=== PATIENT | female | born 1965 | race Caucasian/White ===

== ENCOUNTER → 2017-12-25 | Outpatient (CLI) | payer OTHER ==
[~2017-12-25] VITALS: Ht 149.9 cm; Wt 41.8 kg
[~2017-12-25] MED LIST: ALEVE220 MG PO; ALLEGRA-D 12 H1 EAC1 PO; ALLERGY PO; APAP500 PO; CYCLOBENZAPRINE10 MG PO; CYCLOBENZAPRINE5 MG PO; EYE DROPS OPHTHALMIC; EYE DROPS15 M1 OP; FLEXERIL PO; HYDROCODON-ACE1 EAC5 PO; HYDROCODON-ACE1 EACH PO; HYDROCODONE-AP1 EAC6 PO; MEDROLDOSEPACK PO; NORFLEX100 MG PO; TYLENOL EX-STR500 M2 PO
--- NOTE | ~2017-12-25 | HPC ---
[facility] [place] [address] PAIN MANAGEMENT CONSULTATION Name: JANET ROBERTS Room #: REG CHAS Leslie.#: [id number] Admission: 12/25/17 Attend Phys: Remington Byrnes MD Discharge: Date of : 61 Report #: [id number] THIS REPORT FOR: //name// CC: [facility] physician/PCP Remington Byrnes DATE OF SERVICE: 12/25/2017 Followup visit for chronic low back pain with spondylosis. The patient returns to pain clinic today for her medication. She is currently taking 1 [place] 5/325 per day. Medication is effective when she takes it, and she takes it was prophylactically before activities and at the end of certain aggravating activities. An example was given of her son's graduation. She had to go to [place] for the graduation and was required to sit in bleachers for about 3 hours. By the end of the day, she and the medication that she took the hydrocodone and Flexeril at bedtime were very helpful. Most of her pain is across her low back. Her morphine milligram equivalency is 2.5-5 MME today. Extremely low. We have reviewed the CDC guidelines in our opioid agreement. She will safeguard her medication. PHYSICAL EXAMINATION: She is a pleasant 52-year-old. Pain score of 4. She has a blood pressure of 128/77, heart rate 90, respirations 14, BMI is 18.6. This is pretty typical for her as she is a very small and slight woman. She has some pain across her low back and pain with forward flexion and extension. Localized tenderness without radiation. IMPRESSION: 1. Chronic low back pain with spondylosis and muscle spasm. 2. Management of small amounts of [place] and Flexeril less than 10 MME by opioid calculation. 3. I renewed her medications for 3 months and see her back in the pain clinic. No injections or other treatments are indicated at this time. Importance of remaining active was discussed as a prevention for her as well. By: [id number] Remington Byrnes MD /nt
[2017-12-25 11:06] VITALS: BP 128/77
== END ==
LOC: PAIN 06:53
DX: M47.816 Spondylosis without myelopathy or radiculopathy, lumbar region (principal); G89.29 Other chronic pain; M54.5 Low back pain; M62.838 Other muscle spasm; Z79.899 Other long term (current) drug therapy

== ENCOUNTER → 2018-05-11 | Outpatient (CLI) | payer OTHER ==
[~2018-05-11] VITALS: Ht 149.9 cm; Wt 42.8 kg
[~2018-05-11] MED LIST changes: +COQ-10100 MG PO
--- NOTE | ~2018-05-11 | HPC ---
[facility] [address] [place] [address] PAIN MANAGEMENT CONSULTATION Name: JANET ROBERTS Room #: REG ALEJANDROAmerica Hutchins#: [id number] Admission: 05/11/18 Attend Phys: Remington Byrnes MD Discharge: Date of : 61 Report #: [id number] THIS REPORT FOR: //name// CC: [facility] physician/PCP Remington Byrnes DATE OF SERVICE: 05/11/2018 REASON FOR VISIT: Followup visit for low back pain, now with radicular symptoms. HISTORY OF PRESENT ILLNESS: The patient has been a longstanding patient of our clinic providing medication for chronic pain. She is at very low dose hydrocodone with daily MME of no more than 10-15. She uses it carefully. Previously, she was using a half tablet at a time 2.5 5 MME. She was grateful for the relief that she had and having very few side effects. Today, her pain score is at 5/10 and it is associated also with spasm and an aching sensation. Pain is now radiating down into her legs with stiffness. It is hard to determine dermatome but mostly down the back of her legs. She does not have recent MRI. Pain is made worse with bending, stretching forward flexion. She used to walk 40 minutes on the treadmill daily, but now finds that that is a very fatiguing exercise for her and she has no reason for it other than the fact that her legs are suddenly achy. She still gets about 53873 to 6[address]12 steps a day by her Fitbit. The patient has a history of double mastectomy. Home activities include housework, exercise, twisting, turning. She drives a car without difficulty, although the pain is becoming worse, more considerable towards the end of the day. MEDICATIONS: Include CoQ10, hydrocodone as described, cyclobenzaprine is available, but she does not use it because of sedation and she takes Tylenol occasionally, but does not exceed limits acceptable. PHYSICAL EXAMINATION: She is very tiny 4 feet 11 inches female with a BMI of 19.1. Her blood pressure is 123/75, heart rate 93, respirations 16. She has pain with forward flexion and back extension. Straight leg raising is mildly positive bilaterally at L5-S1 distribution. Sensation is intact. No focal weakness is noted. Deep tendon reflexes are 2+ at knees and ankles. IMPRESSION: Chronic low back pain with some spondylitic changes. Now developing symptoms of lumbar radiculopathy. RECOMMENDATIONS: I will renew her medication for her today, but I have agreed [facility] [address] [place] [address] PAIN MANAGEMENT CONSULTATION Name: JANET ROBERTS Room #: REG [facility].#: [id number] Admission: 05/11/18 Attend Phys: Remington Byrnes MD Discharge: Date of : 61 Report #: [id number] that we will try an epidural steroid injection. She would like to avoid increasing her opioid medication. I will inject her at L4-L5 and plan in covering at least 3-4 dermatomes. If she has not improved, we will consider an MRI at that time. Followup visit planned for an epidural injection in the future. By: [id number] Remington Byrnes MD /nt
[2018-05-11 14:48] VITALS: BP 123/75
== END ==
LOC: PAIN 07:19
DX: M47.26 Other spondylosis with radiculopathy, lumbar region (principal); G89.29 Other chronic pain; Z79.899 Other long term (current) drug therapy

== ENCOUNTER → 2018-05-14 | Outpatient (CLI) | payer OTHER ==
[~2018-05-14] VITALS: Ht 149.9 cm; Wt 43.4 kg
--- NOTE | ~2018-05-14 | HPC ---
[facility] [address] [place] [address] PAIN MANAGEMENT CONSULTATION Name: JANET ROBERTS Room #: REG ALEJANDROAmerica Hutchins#: [id number] Admission: 05/14/18 Attend Phys: Remington Byrnes MD Discharge: Date of : 61 Report #: [id number] THIS REPORT FOR: //name// CC: [facility] physician/PCP Remington Byrnes DATE OF SERVICE: 05/14/2018 Followup visit for lumbar radiculopathy and low back pain. The patient was recently seen for medication management. She currently is on an opioid agreement taking a low dose of hydrocodone 10-15 mg maximum per day. She typically will take one-half tablet at a time, although recently she has been increasing that some because of increasing pain in the back and leg. As we discussed at last visit her pain is increasing with radiation now down into her legs, right worse than left. She describes it as stiffness. Most of it runs down in the L5-S1 distribution. Pain is made worse with standing, forward bending, and flexion. She is having trouble with treadmill exercising and feeling more fatigued mostly to the legs. At times, it extends all the way to the foot. She continues to however, to be very active with multiple steps per day exceeding 10,000. She has a history of glaucoma. We discussed some of the risks associated with use of steroids. A single injection with a reduced amount of triamcinolone as we have discussed today should be safe. 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 All other medications were reviewed and reconciled. PHYSICAL EXAMINATION: GENERAL: Pleasant female, quite anxious because this is her first epidural injection. VITAL SIGNS: Her blood pressure is 123/79, heart rate 85, respirations 14. Her gait is normal. EXTREMITIES: She continues to experience pain in her low back with both flexion and extension and mild straight leg raising is noted bilaterally, worse on the right than the left. Sensation is intact. No focal weakness, generalized sensations of heaviness are noted. IMPRESSION: Low back pain with spondylitic changes and symptoms of lumbar radiculopathy. PROCEDURE: L4-L5 epidural injection under fluoroscopic guidance. After informed consent, the patient was taken to fluoroscopic suite, placed [address] [address] PAIN MANAGEMENT CONSULTATION Name: JANET ROBERTS Room #: REG America Hutchins#: [id number] Admission: 05/14/18 Attend Phys: Remington Byrnes MD Discharge: Date of : 61 Report #: [id number] prone, skin prepped with ChloraPrep. Skin anesthetized over L4-L5 and a 20-gauge Tuohy epidural needle was advanced on the first attempt in the epidural space with loss of resistance technique. There was no blood or CSF aspirated. 0.5 mL of Omnipaque was injected with excellent epidurogram obtained. This was then followed by 4 mL of 0.5% lidocaine mixed with 40 mg triamcinolone. She tolerated the procedure well and was observed for a short time and discharged. Her response, will determine whether she receives another epidural injection in the future. In order for the epidural injections to be helpful, she must have meaningful relief for good duration of response and we will consider another injection in the future. She will allow this procedure to her toe box for pain management rather than increasing her opioid medication. By: [id number] Remington Byrnes MD /nt
[2018-05-14 11:00] VITALS: BP 123/79
== END | disposition home or self-care (01) ==
LOC: PAIN 06:54
DX: M54.16 Radiculopathy, lumbar region (principal); Z86.69 Personal history of other diseases of the nervous system and sense organs; Z88.2 Allergy status to sulfonamides; Z88.8 Allergy status to other drugs, medicaments and biological substances; Z79.899 Other long term (current) drug therapy

== ENCOUNTER → 2018-08-27 | Outpatient (CLI) | payer OTHER ==
[~2018-08-27] VITALS: Ht 149.9 cm; Wt 43.0 kg
[~2018-08-27] MED LIST changes: -APAP500 PO; +RHOPRESSA2.5 ML OPHTHALMIC; +TYLENOL EXTRA500 MG PO
[2018-08-27 13:31] VITALS: BP 129/87
--- NOTE | 2018-08-27 13:52 | NUR ---
Pain Clinic Assessment: 1. History of Osteoarthritis: Not Applicable History of Rheumatoid Arthritis: Not Applicable 2. Height: 4 ft. 11 in. 149.9 cm. Weight: 94.8 lb. oz. 43.001 kg. Patient's BMI: 19.1 3. Vital Signs: BP: 129/87 Pulse: 95 Resp: 14 Temp: 02 Sat: 97 ECG Mon: 4. Pain Intensity: 3 5. Fall Risk: Dizziness: N Needs help standing or walking: N Fallen in the last 3 months: N Fall risk comments: 6. Patient on Blood Thinner: None 7. History of Hypertension: N 8. Opioid Therapy greater than 6 weeks: Y Opiate Contract Signed: 05/13/16 9. Risk Assessment Tool Provided: LOW RISK 07/23 10. Functional Assessment Tool: 11. Recreational Drug Use: Never Drug Type: Tobacco Use: Never Smoker Tobacco Type: Amount or Packs/day: How Many Years: Alcohol Use: Yes Frequency: Quant:
--- NOTE | 2018-08-28 09:44 | HPC ---
[facility] [address] [place] [address] PAIN MANAGEMENT CONSULTATION Name: JANET ROBERTS Room #: REG CHAS Hutchins#: [id number] Admission: 08/27/18 Attend Phys: Madelyn Zambrano Discharge: Date of : 61 Report #: [id number] THIS REPORT FOR: //name// CC: Madelyn Zambrano [facility] physician/PCP DATE OF SERVICE: 08/27/2018 CHIEF COMPLAINT: Lumbar radiculopathy and low back pain. HISTORY OF PRESENT ILLNESS: The patient returns to the pain clinic today for a refill of her medication management that she takes for her ongoing low back pain and lumbar radiculopathy. She tells me that the injection that she had in April from Dr. Remington Byrnes helped her at least 50%. Her legs were significantly better. Unfortunately, this only lasted her for a few weeks, but during that time, she said that she felt like she was able to do more housework, has less pain with her other daily activities, feels that it has slowly worn off. She tells me today that she has some stiffness in her legs. Her legs feel more fatigued earlier in the day than they used to, but rating her pain today of 3/10. She tells me that she takes hydrocodone 1 tablet every day, occasionally she will take second half a tablet or she will use Tylenol for her pain management. She tells me that she does walk on the treadmill every day about 45 minutes and does stretching and back exercises. Occasionally, if her back is very stiff, she will use the Flexeril that she was given by this clinic last December, but uses them very sparingly because she tells me that she is quite sleepy when she takes that medication. She would just like a refill of her hydrocodone today. ALLERGIES: TO BACTRIM AND SULFA. CURRENT LIST OF MEDICATIONS: Rhopressa ophthalmic drops daily, hydrocodone 5/325 as needed, CoQ10 daily, Flexeril very sparingly 10 mg tablets, Tylenol Extra Strength daily and allergy pill daily. PQRS: 1. She denies osteoarthritis or rheumatoid arthritis. 2. Height is 4 feet 11 inches, weight is 94.8. BMI is 19. 3. Vital signs: Blood pressure 129/87, pulse is 95, respirations 14, oxygen sat is 97%. Pain score is 3/10. 4. Fall risk: Denies dizziness. Does not need help walking or standing. Has not fallen in the last 3 months. 5. The patient is not on any blood thinners. She does not take any hypertension medicines. 6. Opioid therapy is greater than 6 weeks, therefore an opioid signed contract is on the chart. 7. Her risk assessment tool is low. Her functional assessment is 21/70. [address] [address] PAIN MANAGEMENT CONSULTATION Name: LIANNAAPOORVAJANETVanita MC Room #: REG CHAS Hutchins#: [id number] Admission: 08/27/18 Attend Phys: Madelyn Zambrano Discharge: Date of : 61 Report #: [id number] 8. The patient's recreational drug use, she denies. She is not a smoker and occasionally drinks alcohol. 9. We did check the prescription monitoring system. The patient filling appropriately from Dr. Remington Byrnes in a timely fashion. PHYSICAL EXAMINATION: GENERAL: This is a very pleasant 52-year-old female who appears her stated age. She is alert and orientated and is a good historian. HEENT: Normocephalic, atraumatic. Extraocular eye muscles are intact. Mucous membranes are moist. Hearing is adequate. EXTREMITIES: She does continue to complain of some low back pain and bilateral leg pain, worse with flexion and extension. Pain is worse on the right than on the left. No focal weaknesses are noted. She does walk with an occasional slight antalgic gait. ASSESSMENT: 1. Low back pain with spondylitic changes. 2. Lumbar radiculopathy. We reviewed the fact that opiate medications are being used to provide analgesia adequate to support activities of daily living, not attempting to achieve a specific pain score on the 0-10 Visual Analog Scale. The current opiate medications are providing sufficient analgesia to allow the patient to participate in activities of daily living. The patient is not exhibiting any aberrant behavior suggestive of drug diversion. The patient is not having any adverse reactions to medications. The patient is not suffering from daytime somnolence or mental acuity changes. The patient is managing opiate-induced constipation with appropriate [id number] agents and dietary considerations. The patient was counseled on concern for caution with operating a motor vehicle while using opiate medications. A physical exam was performed and the patient's functional status was evaluated. All patients with back pain were advised against the bed rest greater than 4 days and were advised to return to normal activities. Pain score assessment was noted and the treatment plan was reviewed with the patient. All current medications, both prescribed and OTC were reviewed and reconciled on the electronic medical record. Tobacco screening was accomplished and smoking cessation was advised when indicated. BMI was noted and diet/exercise modification was recommended for all patients following outside normal parameters. I reviewed with the patient today their responsibilities to safeguard prescription medications, reviewed their responsibility to utilize medications only as prescribed by the physician. They are to seek and receive pain medications only from 1 physician group ( [facility]). They are to use 1 pharmacy and keep the clinic informed if they change pharmacies. Their [facility] [address] [place] [address] PAIN MANAGEMENT CONSULTATION Name: ARMANDOJANETVanita ANDERSONTH [facility] [id number] Admission: 08/27/18 Attend Phys: Madelyn Zambrano Discharge: Date of : 61 Report #: [id number] responsibilities include making followup visits in a timely fashion and to avoid abrupt discontinuation of medication usage. Their responsibilities further include bringing their medications (bottles from the pharmacy with residual pills) to the visit for possible confirmation of pill counts and the patient understands it is their responsibility to submit to random drug screens to ensure both that the medications prescribed are present, and that no other controlled substances are present. All prescriptions provided today were generated electronically. PLAN: 1. We discussed treatment options with the patient today. The patient states that the epidural was quite helpful, relieving at least 50% of her pain. She was able to do significant work around the house, but feels that she does not need another epidural at this time. I did express to her that she may have them periodically when she feels that her pain in her legs is becoming more significant, that we are able to repeat them about 3-4 times a year if she would need them. 2. Script given for hydrocodone 5/325, #120. This medication lasts the patient about 3 months since she takes a half to one tablet daily. The patient was seen in collaboration today with Dr. Remington Byrnes. <ELECTRONICALLY SIGNED> By: Madelyn Zambrano 08/28/18 [id number] Madelyn Zambrano /nt
== END ==
LOC: PAIN 08:26
DX: M47.26 Other spondylosis with radiculopathy, lumbar region (principal); Z79.899 Other long term (current) drug therapy

== ENCOUNTER → 2018-11-26 | Outpatient (CLI) | payer OTHER ==
[~2018-11-26] VITALS: Ht 149.9 cm; Wt 42.4 kg
[~2018-11-26] MED LIST changes: +ALPHAGAN P15 ML OPHTHALMIC
[2018-11-26 12:46] VITALS: BP 134/86
--- NOTE | 2018-11-26 12:50 | NUR ---
Pain Clinic Assessment: 1. History of Osteoarthritis: Not Applicable History of Rheumatoid Arthritis: Not Applicable 2. Height: 4 ft. 11 in. 149.9 cm. Weight: 93.4 lb. oz. 42.366 kg. Patient's BMI: 18.9 3. Vital Signs: BP: 134/86 Pulse: 83 Resp: 14 Temp: 02 Sat: 99 ECG Mon: 4. Pain Intensity: 4 5. Fall Risk: Dizziness: N Needs help standing or walking: N Fallen in the last 3 months: N Fall risk comments: 6. Patient on Blood Thinner: None 7. History of Hypertension: N 8. Opioid Therapy greater than 6 weeks: Y Opiate Contract Signed: 05/13/16 9. Risk Assessment Tool Provided: LOW RISK 07/23 10. Functional Assessment Tool: 11. Recreational Drug Use: Never Drug Type: Tobacco Use: Never Smoker Tobacco Type: Amount or Packs/day: How Many Years: Alcohol Use: Yes Frequency: Quant:
--- NOTE | 2018-11-30 15:01 | HPC ---
[facility] [place] [address] PAIN MANAGEMENT CONSULTATION Name: JANET ROBERTS Room #: REG [facility] Liset#: [id number] Admission: 11/26/18 ������������������ Attend Phys: Madelyn Zambrano Discharge: ������������������ Date of : 61 Report #: [id number] THIS REPORT FOR: //name// CC: Madelyn Zambrano [facility] physician/PCP DATE OF SERVICE: 11/26/2018 CHIEF COMPLAINT: Lumbar radiculopathy and lower back pain. HISTORY OF PRESENT ILLNESS: This is a very pleasant 52-year-old female who returns to the pain clinic today for refill of her medications. She tells me that since we saw her in August, she has torn muscle in her right leg. She is unsure how she did this. She does walk on the treadmill every day about 45 minutes, but was able to do that without problems. 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 She was able to do that without difficulty, though when she laid down at night her leg was hurting extremely bad. She went to the urgent care clinic the next day and did x-rays and found that she had a muscle tear. She tells me that she has been unable to exercise and has been slowly allowing it to heal. She does feel that this is progressing, but days she will have certain movements with her right leg that causes significant pain. She does complain of her normal low back pain as well today, rating her pain score 4/10, worse with activity and housework and twisting and in the evening, that her medications she finds helpful. She has needed to take some muscle relaxant, Flexeril that we provide her with through this increased painful period as well as an extra hydrocodone on some days. She would like a refill of her medications today. She also tells me that she has been having some systemic or autoimmune issues that are affecting her body. She tells me that her legs feel very stiff, especially in the morning. She is scheduled to see a infrastructure design engineer in December in [place], she is unsure of the doctor's name. She tells me that she has been doing some research on different causes and is awaiting her doctor's appointment for further discovery of what may be causing her systemic issues she is feeling. ALLERGIES: BACTRIM. CURRENT MEDICATIONS: Alphagan daily, hydrocodone 5/325 p.r.n., CoQ10 daily, Flexeril p.r.n., Tylenol Extra Strength p.r.n. and allergy medicines. PQRS: 1. She denies any osteoarthritis or rheumatoid arthritis at this time. 2. Height is 4 feet 11 inches, weight is 93, BMI is 18. 3. Vital signs: Blood pressure 134/86, pulse is 83, respirations 14, oxygen sat is 99. Pain score is 4/10. 4. Fall risk: Denies dizziness, does not need help walking or standing, has [address] [address] PAIN MANAGEMENT CONSULTATION Name: ARMANDOJANETVanita MC Room #: REG [facility]#: [id number] Admission: 11/26/18 ������������������ Attend Phys: Madelyn Zambrano Discharge: ������������������ Date of : 61 Report #: [id number] not fallen in the last 3 months. 5. The patient is not on any blood thinners and does not take medicines for hypertension. 6. Her opioid therapy is greater than 6 weeks, therefore, an opioid signed contract is on the chart. Her risk assessment tool is low. Her functional assessment . 7. Recreational drug use, she denies. She is not a smoker and she does drink alcohol. We did check the prescription monitoring system, the patient is filling appropriately, though p.r.n., last fill in August for her narcotic medicines. She tells me she does safeguard her medicines at all time. PHYSICAL EXAMINATION: GENERAL: This is a very pleasant 52-year-old female who appears her stated age, placing her pain score today at 4/10. She is alert and orientated and a good historian. HEENT: Normocephalic, atraumatic. Extraocular eye muscles are intact. Mucous membranes are moist. Hearing is adequate. EXTREMITIES: She does complain of some right upper thigh pain today from recent muscle tear as well as bilateral leg stiffness, worse in the morning and complains of tenderness across her lower back region. Lower extremity strength judged to be 5/5 bilaterally. She does walk with an antalgic gait. IMPRESSION: 1. Low back pain with spondylitic changes. 2. Lumbar radiculopathy. We reviewed the fact that opiate medications are being used to provide analgesia adequate to support activities of daily living, not attempting to achieve a specific pain score on the 0-10 Visual Analog Scale. The current opiate medications are providing sufficient analgesia to allow the patient to participate in activities of daily living. The patient is not exhibiting any aberrant behavior suggestive of drug diversion. The patient is not having any adverse reactions to medications. The patient is not suffering from daytime somnolence or mental acuity changes. The patient is managing opiate-induced constipation with appropriate zezx-cud-lgqkvgb agents and dietary considerations. The patient was counseled on concern for caution with operating a motor vehicle while using opiate medications. A physical exam was performed and the patient's functional status was evaluated. All patients with back pain were advised against the bed rest greater than 4 days and were advised to return to normal activities. Pain score assessment was noted and the treatment plan was reviewed with the patient. All current medications, both prescribed and OTC were reviewed and reconciled on the electronic medical record. Tobacco screening was accomplished and smoking [facility] [address] [place] [address] PAIN MANAGEMENT CONSULTATION Name: JANET ROBERTS Room #: REG [facility]#: [id number] Admission: 11/26/18 ������������������ Attend Phys: Madelyn Zambrano Discharge: ������������������ Date of : 61 Report #: [id number] cessation was advised when indicated. BMI was noted and diet/exercise modification was recommended for all patients following outside normal parameters. I reviewed with the patient today their responsibilities to safeguard prescription medications, reviewed their responsibility to utilize medications only as prescribed by the physician. They are to seek and receive pain medications only from 1 physician group ( [facility]). They are to use 1 pharmacy and keep the clinic informed if they change pharmacies. Their responsibilities include making followup visits in a timely fashion and to avoid abrupt discontinuation of medication usage. Their responsibilities further include bringing their medications (bottles from the pharmacy with residual pills) to the visit for possible confirmation of pill counts and the patient understands it is their responsibility to submit to random drug screens to ensure both that the medications prescribed are present, and that no other controlled substances are present. All prescriptions provided today were generated electronically. PLAN: 1. We discussed treatment options with the patient today. Since the patient has had this recent muscle tear and her pain has increased some, she has been requiring slight increase in her opioids. We will continue to write for her hydrocodone 5/325, quantity 120. This has been lasting her 3-4 months. I explained to her that if she is requiring 2 a day, to make an appointment and we will address these medications needs and increases and adjust her prescriptions accordingly, but one prescription given today for 120. 2. I encouraged the patient to have the infrastructure design engineer send us reports that she is seeing in December regarding any findings they discover. We did talk briefly about anti-inflammatory meds, though she has a history of ulcers. There are some NSAID medications that may be beneficial, but I am hesitant to start these when she is going to have a full rheumatoid workup in less than a month. 3. The patient will return in followup as needed for medications. Dr. Remington Byrnes did see this patient in collaborative care today. ��������������������������������������������� <ELECTRONICALLY SIGNED> ���������������������������������������� By: Madelyn Zambrano ��������������������������������������������� 11/30/18 1501 [id number] Madelyn Zambrano /george
== END ==
LOC: PAIN 06:52
DX: M54.16 Radiculopathy, lumbar region (principal); Z88.8 Allergy status to other drugs, medicaments and biological substances; Z79.899 Other long term (current) drug therapy

== ENCOUNTER → 2019-01-25 | Outpatient (CLI) | payer OTHER ==
[~2019-01-25] VITALS: Ht 149.9 cm; Wt 41.8 kg
[~2019-01-25] MED LIST changes: +HYDROCODON-ACE1 EAC7 PO
[2019-01-25 10:08] VITALS: BP 126/85
--- NOTE | 2019-01-25 10:18 | NUR ---
Pain Clinic Assessment: 1. History of Osteoarthritis: Not Applicable History of Rheumatoid Arthritis: Not Applicable 2. Height: 4 ft. 11 in. 149.9 cm. Weight: 92.2 lb. oz. 41.821 kg. Patient's BMI: 18.6 3. Vital Signs: BP: 126/85 Pulse: 88 Resp: 14 Temp: 02 Sat: 99 ECG Mon: 4. Pain Intensity: 2-3 5. Fall Risk: Dizziness: N Needs help standing or walking: N Fallen in the last 3 months: N Fall risk comments: 6. Patient on Blood Thinner: None 7. History of Hypertension: N 8. Opioid Therapy greater than 6 weeks: Y Opiate Contract Signed: 05/13/16 9. Risk Assessment Tool Provided: LOW RISK 07/23 10. Functional Assessment Tool: 11. Recreational Drug Use: Never Drug Type: Tobacco Use: Never Smoker Tobacco Type: Amount or Packs/day: How Many Years: Alcohol Use: Yes Frequency: Quant:
--- NOTE | 2019-01-25 15:40 | HPC ---
[facility] [place] [address] PAIN MANAGEMENT CONSULTATION Name: ARMANDOJANET JESUSITA Room #: REG [facility] Liset#: [id number] Admission: 01/25/19 ������������������ Attend Phys: Madelyn Zambrano Discharge: ������������������ Date of : 61 Report #: [id number] THIS REPORT FOR: //name// CC: Madelyn Zambrano [facility] physician/PCP DATE OF SERVICE: 01/25/2019 CHIEF COMPLAINT: Lumbar radiculopathy and low back pain. HISTORY OF PRESENT ILLNESS: This is a very pleasant 53-year-old female who returns to the pain clinic today for a refill of her medications. She tells me that she has recently seen a switch repairer, Dr. Bella Frye, and had blood work drawn. The patient had some inconclusive results. She had more lab work drawn by Dr. Frye and the patient is yet to see these results. She is worried that she may have multiple sclerosis or some other significant immunodeficiency disorder. She is going to try to follow up with this switch repairer later in the week and possibly even be referred to a [employer] switch repairer. The patient tells me she is also going to see a new primary care doctor later this week, but she is unsure of the doctor's name. She tells me she just continues to have bilateral numbness and stiffness in her legs and her arms. She feels that her right leg is significantly weaker. She believes this is all due to an autoimmune disorder or rheumatology disorder that they are trying to figure out the cause and treatment. The patient tells me that her low back and leg pain is a 2-3 today. She mostly feels achy, fatigued and numb. Her pain is worse in the evening or first thing in the morning. She is quite stiff. Her medication is quite helpful as well as stretching and walking on the treadmill. ALLERGIES: SULFA AND BACTRIM. CURRENT LIST OF MEDICATIONS: Hydrocodone 5/325 up to 2 a day p.r.n., Alphagan drops, CoQ10, Tylenol Extra Strength and allergy pills. PQRS REVIEW: 1. The patient denies any osteoarthritis or treated rheumatoid arthritis at this time. 2. Height is 4 feet 11 inches, weight is 92 and BMI is 18. 3. Vital signs, 126/85, pulse is 88, respirations 14 and oxygen sat is 99. 4. Pain score 2-3. 5. Denies dizziness, does not need help walking or standing, has not fallen in the last 3 months. 6. The patient is not on any blood thinners or history of hypertension. 7. Opioid therapy is greater than 6 weeks; therefore, an opioid signed contract is on the chart. Her risk assessment tool is low. Functional assessment is [address] [address] PAIN MANAGEMENT CONSULTATION Name: LIANNAAPOORVAJANET Room #: REG [facility] Liset#: [id number] Admission: 01/25/19 ������������������ Attend Phys: Madelyn Zambrano Discharge: ������������������ Date of : 61 Report #: [id number] out of 70. 8. Recreational drug use, she denies. She is not a smoker and occasionally drinks alcohol. We did check the prescription monitoring system. The patient is filling appropriately for her medications. We will check a drug screen on the patient in her next visit. She tells me she does safeguard her medicines. PHYSICAL EXAMINATION: GENERAL: This is a very pleasant 53-year-old female, who appears her stated age, placing her pain score at 2-3 today. She is alert and orientated and is a good historian. HEENT: Normocephalic, atraumatic. Extraocular eye muscles are intact. Mucous membranes are moist. Hearing is adequate. EXTREMITIES: She has some weakness in her right leg, greater than the left, rating at 4/5 in the right. She does have equal symmetry and tone. She also complains of some numbness in her bilateral legs. The patient complains of tenderness across her lumbar back region. She walks with a slightly antalgic gait. The patient complains of morning stiffness and occasional electrical feeling in her arms, not present today. IMPRESSION: 1. Low back pain with spondylitic changes. 2. Lumbar radiculopathy. 3. Management of medications under opioid agreement. We reviewed the fact that opiate medications are being used to provide analgesia adequate to support activities of daily living, not attempting to achieve a specific pain score on the 0-10 Visual Analog Scale. The current opiate medications are providing sufficient analgesia to allow the patient to participate in activities of daily living. The patient is not exhibiting any aberrant behavior suggestive of drug diversion. The patient is not having any adverse reactions to medications. The patient is not suffering from daytime somnolence or mental acuity changes. The patient is managing opiate-induced constipation with appropriate [id number]-[id number] agents and dietary considerations. The patient was counseled on concern for caution with operating a motor vehicle while using opiate medications. A physical exam was performed and the patient's functional status was evaluated. All patients with back pain were advised against the bed rest greater than 4 days and were advised to return to normal activities. Pain score assessment was noted and the treatment plan was reviewed with the patient. All current medications, both prescribed and OTC were reviewed and reconciled on the electronic medical record. Tobacco screening was accomplished and smoking cessation was advised when indicated. BMI was noted and diet/exercise modification was recommended for all patients following outside normal [facility] [address] [place] [address] PAIN MANAGEMENT CONSULTATION Name: ARMANDOJANETVanita MC Room #: REG [facility].#: [id number] Admission: 01/25/19 ������������������ Attend Phys: Madelyn JONNA Zambrano Discharge: ������������������ Date of : 61 Report #: [id number] parameters. I reviewed with the patient today their responsibilities to safeguard prescription medications, reviewed their responsibility to utilize medications only as prescribed by the physician. They are to seek and receive pain medications only from 1 physician group ( [facility]). They are to use 1 pharmacy and keep the clinic informed if they change pharmacies. Their responsibilities include making followup visits in a timely fashion and to avoid abrupt discontinuation of medication usage. Their responsibilities further include bringing their medications (bottles from the pharmacy with residual pills) to the visit for possible confirmation of pill counts and the patient understands it is their responsibility to submit to random drug screens to ensure both that the medications prescribed are present, and that no other controlled substances are present. All prescriptions provided today were generated electronically. PLAN: 1. We discussed treatment options with the patient today. Overall, most of her pain is being controlled with her hydrocodone 5/325; she takes 1-2 tablets a day. Prescription given for 120, which usually lasts her about 4 months. 2. The patient will see her switch repairer again this week after more lab work is resulted. The patient will also share this information with her new primary care doctor, who she has seen on . I encouraged the patient to possibly even see a switch repairer at if she feels that she needs to with her results an autoimmune disorder that she feels they are leading her towards a diagnosis of. The patient verbalizes understanding. 3. The patient will call for an appointment in 2 months and she will let us know if any changes made with her new doctors. 4. This patient's case was discussed with Dr. Byrnes and Dr. Reyna who is collaborated care with me today and covering for Dr Byrnes. ��������������������������������������������� <ELECTRONICALLY SIGNED> ���������������������������������������� By: Madelyn Zambrano ��������������������������������������������� 01/25/19 1540 [id number] Madelyn Zambrano /nt
== END ==
LOC: PAIN 09:40
DX: M47.26 Other spondylosis with radiculopathy, lumbar region (principal); Z79.891 Long term (current) use of opiate analgesic; Z79.899 Other long term (current) drug therapy

== ENCOUNTER → 2019-05-10 | Outpatient (CLI) | payer OTHER ==
[~2019-05-10] VITALS: Ht 149.9 cm; Wt 42.6 kg
[2019-05-10 12:45] VITALS: BP 112/84
--- NOTE | 2019-05-10 12:52 | NUR ---
Pain Clinic Assessment: 1. History of Osteoarthritis: LOW BACK History of Rheumatoid Arthritis: Not Applicable 2. Height: 4 ft. 11 in. 149.9 cm. Weight: 94.0 lb. oz. 42.638 kg. Patient's BMI: 19.0 3. Vital Signs: BP: 112/84 Pulse: 77 Resp: 14 Temp: 02 Sat: 98 ECG Mon: 4. Pain Intensity: 2 5. Fall Risk: Dizziness: N Needs help standing or walking: N Fallen in the last 3 months: N Fall risk comments: 6. Patient on Blood Thinner: None 7. History of Hypertension: N 8. Opioid Therapy greater than 6 weeks: Y Opiate Contract Signed: 05/13/16 9. Risk Assessment Tool Provided: LOW RISK 07/23 10. Functional Assessment Tool: 11. Recreational Drug Use: Never Drug Type: Tobacco Use: Never Smoker Tobacco Type: Amount or Packs/day: How Many Years: Alcohol Use: Yes Frequency: Weekly Quant: 1-2
--- NOTE | 2019-05-11 12:36 | HPC ---
[facility] [address] [place] [address] PAIN MANAGEMENT CONSULTATION Name: JANET ROBERTS Room #: REG [facility] MRobert.#: [id number] Admission: 05/10/19 Attend Phys: Madelyn Zambrano Discharge: Date of : 61 Report #: [id number] THIS REPORT FOR: //name// CC: Madelyn Zambrano [facility] physician/PCP DATE OF SERVICE: 05/10/2019 CHIEF COMPLAINT: Lumbar radiculopathy and low back pain. HISTORY OF PRESENT ILLNESS: This is a pleasant 53-year-old female who returns to the pain clinic today for refill of her medications that she uses to help treat her ongoing low back pain and bilateral leg pain. She rates her pain score today at 2/10. It is more of an achy soreness tired feeling, worse with walking and driving, or prolonged sitting. She fills her medication and exercises are very beneficial. She uses her hydrocodone very sparingly and denies any problems with constipation or daytime sleepiness. The patient tells me that she is trying to see another flame annealing machine setter at . She does have an appointment set for June. She states that the last results were inconclusive and is still attempting to find more concrete results of why she may be having significant issues that are rheumatologic or are autoimmune in nature. ALLERGIES: SULFA AND BACTRIM. CURRENT LIST OF MEDICATIONS: Hydrocodone 5/325 p.r.n., Alphagan drops daily, CoQ10, Tylenol Extra Strength, and allergy medicine. PQRS: 1. She has osteoarthritis in her lumbar spine. No diagnosis of rheumatoid arthritis presently. 2. Height is 4 feet 11 inches, weight is 294, BMI is 19. 3. Vital signs 112/84, pulse is 77, respirations 14, oxygen sat is 98. 4. Pain score is 2/10. 5. Denies dizziness, does not need help walking or standing, has not fallen in the last 3 months. 6. The patient is not on any blood thinners or medicines for hypertension. 7. Opioid therapy is greater than 6 weeks; therefore, an opioid signed contract is on the chart. Her risk assessment tool is low. Functional assessment is . 8. Recreational drug use, she denies. She is not a smoker and occasionally drinks alcohol. According to the prescription monitoring system, the patient is filling appropriately for her medications. We will check a random drug screen on her [address] [address] PAIN MANAGEMENT CONSULTATION Name: JANET ROBERTSBETH Room #: REG CLI Liset#: [id number] Admission: 05/10/19 Attend Phys: Madelyn Zambrano Discharge: Date of : 61 Report #: [id number] today as it has been greater than a year since her last screening. PHYSICAL EXAMINATION: GENERAL: This is a very pleasant 53-year-old female who appears her stated age, placing her current pain score at 2/10 today. She is alert and orientated and is a good historian. HEENT: Normocephalic, atraumatic. Extraocular eye muscles are intact. Mucous membranes are moist. MUSCULOSKELETAL: The patient complains of tenderness across her lumbosacral region. She walks with a slightly antalgic gait. She has complaints of morning stiffness and tightness in her lower extremities. Her lower extremity strength judged to be 4/5 in all major muscle groups. IMPRESSION: 1. Low back pain with spondylitic changes. 2. Lumbar radiculopathy. 3. Management of medications under terms of written opioid agreement. We reviewed the fact that opiate medications are being used to provide analgesia adequate to support activities of daily living, not attempting to achieve a specific pain score on the 0-10 Visual Analog Scale. The current opiate medications are providing sufficient analgesia to allow the patient to participate in activities of daily living. The patient is not exhibiting any aberrant behavior suggestive of drug diversion. The patient is not having any adverse reactions to medications. The patient is not suffering from daytime somnolence or mental acuity changes. The patient is managing opiate-induced constipation with appropriate uaea-jzc-cltgzop agents and dietary considerations. The patient was counseled on concern for caution with operating a motor vehicle while using opiate medications. A physical exam was performed and the patient's functional status was evaluated. All patients with back pain were advised against the bed rest greater than 4 days and were advised to return to normal activities. Pain score assessment was noted and the treatment plan was reviewed with the patient. All current medications, both prescribed and OTC were reviewed and reconciled on the electronic medical record. Tobacco screening was accomplished and smoking cessation was advised when indicated. BMI was noted and diet/exercise modification was recommended for all patients following outside normal parameters. I reviewed with the patient today their responsibilities to safeguard prescription medications, reviewed their responsibility to utilize medications only as prescribed by the physician. They are to seek and receive pain medications only from 1 physician group ([facility]). They are to use 1 pharmacy and keep the clinic informed if they change pharmacies. Their responsibilities include making followup visits in a timely fashion and to avoid [address] [address] PAIN MANAGEMENT CONSULTATION Name: JANET ROBERTS Room #: REG [facility] Hutchins#: [id number] Admission: 05/10/19 Attend Phys: Madelyn Zambrano Discharge: Date of : 61 Report #: [id number] abrupt discontinuation of medication usage. Their responsibilities further include bringing their medications (bottles from the pharmacy with residual pills) to the visit for possible confirmation of pill counts and the patient understands it is their responsibility to submit to random drug screens to ensure both that the medications prescribed are present, and that no other controlled substances are present. All prescriptions provided today were generated electronically. PLAN: 1. We discussed treatment options with the patient today. The patient feels like her pain is well controlled with occasional hydrocodone. The patient is taking a half to 2 tablets a day depending on the severity of her pain. Scripts given today for hydrocodone 5/325, #125. This lasts her several months. 2. The patient will follow up with a new flame annealing machine setter at . I encouraged her to send us the reports from that visit. They are trying to determine if she has an autoimmune disorder or rheumatological disorder. The patient also feels that she may need to see a neurologist to rule out multiple sclerosis. These are again are her diagnoses. The patient care was discussed with Dr. Byrnes who collaborated care today. The patient will return as needed. <ELECTRONICALLY SIGNED> By: Madelyn Zambrano 05/11/19 1236 1343 56 Madelyn Zambrano /nt
== END ==
LOC: PAIN 06:48
DX: M54.16 Radiculopathy, lumbar region (principal); Z79.899 Other long term (current) drug therapy; Z88.2 Allergy status to sulfonamides; Z79.891 Long term (current) use of opiate analgesic

== ENCOUNTER → 2019-08-30 | Outpatient (CLI) | payer OTHER ==
[~2019-08-30] VITALS: Ht 149.9 cm; Wt 42.5 kg
[~2019-08-30] MED LIST changes: +VOLTAREN GEL 1100 G1 TOP
[2019-08-30 10:17] VITALS: BP 149/86
--- NOTE | 2019-08-30 10:31 | NUR ---
Pain Clinic Assessment: 1. History of Osteoarthritis: LOW BACK History of Rheumatoid Arthritis: Not Applicable 2. Height: 4 ft. 11 in. 149.9 cm. Weight: 93.6 lb. oz. 42.456 kg. Patient's BMI: 18.9 3. Vital Signs: BP: 149/86 Pulse: 96 Resp: 14 Temp: 02 Sat: ECG Mon: 4. Pain Intensity: 3 5. Fall Risk: Dizziness: Y Needs help standing or walking: N Fallen in the last 3 months: N Fall risk comments: 6. Patient on Blood Thinner: None 7. History of Hypertension: N 8. Opioid Therapy greater than 6 weeks: Y Opiate Contract Signed: 05/13/16 9. Risk Assessment Tool Provided: LOW RISK 07/23 10. Functional Assessment Tool: 11. Recreational Drug Use: Never Drug Type: Tobacco Use: Never Smoker Tobacco Type: Amount or Packs/day: How Many Years: Alcohol Use: Yes Frequency: Quant:
--- NOTE | 2019-08-31 08:11 | HPC ---
[facility] [address] [place] [address] PAIN MANAGEMENT CONSULTATION Name: JANET ROBERTS Room #: REG [place] Hutchins#: [id number] Admission: 08/30/19 Attend Phys: Madelyn Zambrano Discharge: Date of : 61 Report #: [id number] THIS REPORT FOR: cc: MARILUZ - No family physician/PCP MARILUZ - No family physician/PCP Madelyn Zambrano ~ THIS REPORT FOR: //name// CC: Madelyn Zambrano [facility] physician/PCP DATE OF SERVICE: 08/30/2019 CHIEF COMPLAINT: Lumbar radiculopathy and low back pain. HISTORY OF PRESENT ILLNESS: This is a 53-year-old female who returns to the pain clinic today to discuss her medication management that she uses to help treat her ongoing low back pain and bilateral leg pain. She is reporting a pain score 3/10. She does take on average of 1 hydrocodone a day, using this very sparingly. Denies any problems with constipation or daytime sleepiness. She does rate her pain at 3/10 today. It is a chronic aching soreness, worse with walking and driving or prolonged sitting, but she feels that walking on her treadmill as well as her medication is very beneficial. The patient does report that she recently saw a field crew chief at . She is going for her followup visit on . According to the report, she has seen online, she is diagnosed with undifferentiated autoimmune connective tissue disease. The patient reports that her antibodies were positive, though as I stated, she will follow up with her field crew chief on to have more explanation of this diagnosis. The patient does have a new medicine. They prescribed for her Voltaren gel. She has found this very beneficial in helping with some of her hand and foot pain. ALLERGIES: BACTRIM. CURRENT LIST OF MEDICATIONS: Voltaren gel p.r.n., hydrocodone 5/325 p.r.n., Alphagan drops, CoQ10, Flexeril p.r.n., Tylenol Extra Strength p.r.n. PQRS: 1. She has osteoarthritis in her lumbar spine. No diagnosis of rheumatoid arthritis. Does have autoimmune disorder. 2. Height is 4 feet 11 inches, weight is 93 pounds, BMI is 18.9. 3. Vital signs: Blood pressure 149/86, pulse is 96, respirations 14, oxygen sat is 100. 4. Pain score is 3/10. 5. The patient complains of slight dizziness, does not need help walking or [facility] [address] [place] [address] PAIN MANAGEMENT CONSULTATION Name: JANET ROBERTS Room #: REG [facility].#: [id number] Admission: 08/30/19 Attend Phys: Madelyn Zambrano Discharge: Date of : 61 Report #: [id number] standing, has not fallen in the last 3 months. 6. The patient is not on any blood thinners or medicine for hypertension. She is on opioid greater than 6 weeks; therefore, an opioid signed contract is on the chart. Risk assessment tool is low. Functional assessment is 21/70. 7. Recreational drug use, she denies. She is not a smoker and occasionally drinks alcohol. According to the prescription monitoring system, the patient last filled her medication in April, which is appropriate with her prescriptions. She does take these very sparingly and finds them beneficial. Her morphine mEq is less than 5 MME per day. There is a random drug screen on the chart that is appropriate as well. PHYSICAL EXAMINATION: GENERAL: This is a pleasant 53-year-old female who appears her stated age. She has a flat affect. Placing her current pain score at 3/10 today. She is alert and orientated. HEENT: Normocephalic, atraumatic. Extraocular eye muscles are intact. Mucous membranes are moist. MUSCULOSKELETAL: The patient has a slightly antalgic gait. She has tenderness in her lumbosacral region of her spine and tenderness in her right thigh. Her lower extremity strength judged to be 5/5 in all major muscle groups. The patient also complains of tenderness in her joints of her bilateral hands and feet. IMPRESSION: 1. Low back pain with spondylitic changes. 2. Lumbar radiculopathy. 3. Management of medications under terms of written opioid agreement. We reviewed the fact that opiate medications are being used to provide analgesia adequate to support activities of daily living, not attempting to achieve a specific pain score on the 0-10 Visual Analog Scale. The current opiate medications are providing sufficient analgesia to allow the patient to participate in activities of daily living. The patient is not exhibiting any aberrant behavior suggestive of drug diversion. The patient is not having any adverse reactions to medications. The patient is not suffering from daytime somnolence or mental acuity changes. The patient is managing opiate-induced constipation with appropriate apum-pfz-cbjhngn agents and dietary considerations. The patient was counseled on concern for caution with operating a motor vehicle while using opiate medications. PLAN: 1. We discussed treatment options with the patient today. The patient finds the occasional hydrocodone very beneficial in controlling her pain, taking it very sparingly. We will refill her hydrocodone 5/325, #120. These usually last [facility] [address] [place] [address] PAIN MANAGEMENT CONSULTATION Name: JANET ROBERTS Room #: REG CLI [facility].#: [id number] Admission: 08/30/19 Attend Phys: Madelyn Zambrano Discharge: Date of : 61 Report #: [id number] her several months. 2. The patient is going to follow up on with her field crew chief at per her report. She reports a diagnosis of a differential autoimmune connective tissue disease. She does not have a name, just this diagnosis that she had read on her chart online. The patient will follow up with us with details. 3. The patient's care was discussed with Dr. Remington Byrnes who collaborated care today. <ELECTRONICALLY SIGNED> By: Madelyn Zambrano 08/31/19 0811 1110 1252 Madelyn Zambrano /nt
== END ==
LOC: PAIN 06:44
DX: M47.26 Other spondylosis with radiculopathy, lumbar region (principal); Z88.2 Allergy status to sulfonamides; Z79.899 Other long term (current) drug therapy

== ENCOUNTER → 2019-12-09 | Outpatient (CLI) | payer OTHER ==
[~2019-12-09] VITALS: Ht 149.9 cm; Wt 42.4 kg
[~2019-12-09] MED LIST changes: +VITAMIN B12-FO1 EAC1 PO; +VITAMIN B122500 MCG PO
--- NOTE | ~2019-12-09 | HPC ---
[facility] [address] [place] [address] PAIN MANAGEMENT CONSULTATION Name: JANET ROBERTS Room #: REG [facility] Hutchins#: [id number] Admission: 12/09/19 Attend Phys: Madelyn Zambrano Discharge: Date of : 61 Report #: [id number] THIS REPORT FOR: cc: MARILUZ - No family physician/PCP MARILUZ - No family physician/PCP Madelyn Zambrano ~ CC: Madelyn Zambrano [facility] physician/PCP Remington Byrnes MD DATE OF SERVICE: 12/09/2019 CHIEF COMPLAINT: Lumbar radiculopathy and low back pain. HISTORY OF PRESENT ILLNESS: This is a 53-year-old female who returns to the pain clinic today for treatment of her ongoing low back pain and bilateral leg pain. Today, she is reporting a pain score of 3/10. She feels that her current pain medication regimen is beneficial in helping reduce some of her pain. She states that at times, her pain is an achy soreness, stiffness feeling, especially in her legs. She feels that it is worse when she is sitting too long or driving. She tries to exercise every day on the treadmill or walking outside. She finds this beneficial as well as her medication, which she does take on a sparingly basis. The patient does report to me that she did see the machinist apprentice wood. He feels that she is having osteoarthritis in her feet and as well as she has a connective tissue disorder. No new meds have been given to her since we have last seen her. She feels that her other health issues have been stable since we have seen her last in August. ALLERGIES: BACTRIM. CURRENT LIST OF MEDICATIONS: Vitamin B12, folic acid, hydrocodone 5/325, Voltaren gel, Alphagan drops, CoQ10, Flexeril, Tylenol Extra Strength, and allergy medicine. PQRS: 1. She has osteoarthritis in her lumbar spine, does have an autoimmune disorder. No rheumatoid arthritis. 2. Height is 4 feet 11 inches, weight is 93, BMI is 18. 3. Vital signs 131/84, pulse is 87, respirations 14, oxygen sat is 98. 4. Pain score is 3/10. 5. Denies dizziness, does not need help walking or standing, has not fallen in the last 3 months. 6. The patient is not on any blood thinners or medicine for hypertension. 7. Opioid therapy is greater than 6 weeks; therefore, an opioid signed contract [address] [address] PAIN MANAGEMENT CONSULTATION Name: JANET ROBERTS Room #: REG CLI Liset#: [id number] Admission: 12/09/19 Attend Phys: Madelyn Zambrano Discharge: Date of : 61 Report #: [id number] is on the chart. Risk assessment tool is low. Functional assessment is . 8. Recreational drug use, she denies. She is not a smoker and occasionally drinks alcohol. According to the prescription monitoring system, the patient filled her medications in August, which is appropriate for her medications. Her MME is 5 MME per day according to the CDC guidelines. There is a recent drug screen on the chart that is appropriate for her medications. PHYSICAL EXAMINATION: GENERAL: This is a well-developed, well-nourished, well-hydrated 53-year-old female who appears her stated age. She does have a flat affect, rating her pain score today at 3/10. HEENT: Normocephalic, atraumatic. Extraocular eye muscles are intact. She is wearing a mask. MUSCULOSKELETAL: She has tenderness in the lumbosacral region of her spine. She has tenderness in her joints of hands and feet. Her lower extremity strength is judged to be 5/5 in all major muscle groups. She has a slightly antalgic gait. IMPRESSION: 1. Low back pain with spondylitic changes. 2. Lumbar radiculopathy. 3. Management of medications under terms of written opioid agreement. We reviewed the fact that opiate medications are being used to provide analgesia adequate to support activities of daily living, not attempting to achieve a specific pain score on the 0-10 Visual Analog Scale. The current opiate medications are providing sufficient analgesia to allow the patient to participate in activities of daily living. The patient is not exhibiting any aberrant behavior suggestive of drug diversion. The patient is not having any adverse reactions to medications. The patient is not suffering from daytime somnolence or mental acuity changes. The patient is managing opiate-induced constipation with appropriate agop-atq-thgmeyb agents and dietary considerations. The patient was counseled on concern for caution with operating a motor vehicle while using opiate medications. PLAN: 1. We discussed treatment options with the patient today. The patient finds her current medication regimen very beneficial of hydrocodone 5/325, she takes these very sparingly. We will refill this medication for #120 and send it to her pharmacy electronically by Dr. Remington Byrnes. The patient does report to me that she received a letter from her insurance company requiring a prior authorization for this fill. I explained to her once we have the information back from the pharmacist, we will start that process. We have done this in the past for her. [address] [address] PAIN MANAGEMENT CONSULTATION Name: JANET ROBERTS Room #: REG [facility] Hutchins#: [id number] Admission: 12/09/19 Attend Phys: Madelyn Zambrano Discharge: Date of : 61 Report #: [id number] 2. The patient is requesting a refill of her Flexeril tablets. She takes these on a very sparingly basis when she has muscle spasms. According to her chart, her last fill was in 2018. I will send her Flexeril 10 mg, #30, to her pharmacy with no additional refills. 3. I encouraged the patient to keep active as she is possible, even during this COVID outbreak. The patient is very nervous about going outside, she has mostly been walking on her treadmill. Today, she is wearing gloves and a mask throughout our visit. She reports that she does not go to the grocery stores or any stores. I encouraged her just to get plenty of rest, stay healthy and wash her hands. 4. The patient is seen in collaboration with Dr. Remington Byrnes. By: [id number] Madelyn Zambrano /george
[2019-12-09 14:07] VITALS: BP 131/84
--- NOTE | 2019-12-09 14:17 | NUR ---
Pain Clinic Assessment: 1. History of Osteoarthritis: LOW BACK History of Rheumatoid Arthritis: Not Applicable 2. Height: 4 ft. 11 in. 149.9 cm. Weight: 93.4 lb. oz. 42.366 kg. Patient's BMI: 18.9 3. Vital Signs: BP: 131/84 Pulse: 87 Resp: 14 Temp: 02 Sat: 98 ECG Mon: 4. Pain Intensity: 3 5. Fall Risk: Dizziness: N Needs help standing or walking: N Fallen in the last 3 months: N Fall risk comments: 6. Patient on Blood Thinner: None 7. History of Hypertension: N 8. Opioid Therapy greater than 6 weeks: Y Opiate Contract Signed: 05/13/16 9. Risk Assessment Tool Provided: LOW RISK 07/23 10. Functional Assessment Tool: 11. Recreational Drug Use: Never Drug Type: Tobacco Use: Never Smoker Tobacco Type: Amount or Packs/day: How Many Years: Alcohol Use: Yes Frequency: Quant:
== END ==
LOC: PAIN 06:47
DX: M47.26 Other spondylosis with radiculopathy, lumbar region (principal); Z79.891 Long term (current) use of opiate analgesic

== ENCOUNTER → 2020-04-03 | Outpatient (CLI) | payer OTHER ==
[~2020-04-03] VITALS: Ht 149.9 cm; Wt 43.3 kg
[~2020-04-03] MED LIST changes: +VITAMIN D-40010 MCG PO
[2020-04-03 12:55] VITALS: BP 112/80
--- NOTE | 2020-04-03 13:02 | NUR ---
Pain Clinic Assessment: 1. History of Osteoarthritis: LOW BACK History of Rheumatoid Arthritis: Not Applicable 2. Height: 4 ft. 11 in. 149.9 cm. Weight: 95.4 lb. oz. 43.273 kg. Patient's BMI: 19.3 3. Vital Signs: BP: 112/80 Pulse: 84 Resp: 14 Temp: 02 Sat: 97 ECG Mon: 4. Pain Intensity: 3 5. Fall Risk: Dizziness: N Needs help standing or walking: N Fallen in the last 3 months: N Fall risk comments: 6. Patient on Blood Thinner: None 7. History of Hypertension: N 8. Opioid Therapy greater than 6 weeks: Y Opiate Contract Signed: 05/13/16 9. Risk Assessment Tool Provided: LOW RISK 07/23 10. Functional Assessment Tool: 11. Recreational Drug Use: Never Drug Type: Tobacco Use: Never Smoker Tobacco Type: Amount or Packs/day: How Many Years: Alcohol Use: Yes Frequency: Quant:
--- NOTE | 2020-04-04 13:07 | HPC ---
[facility] [address] [place] [address] PAIN MANAGEMENT CONSULTATION Name: JANET ROBERTS Room #: REG CHAS Hutchins#: [id number] Admission: 04/03/20 Attend Phys: Madelyn Zambrano Discharge: Date of : 61 Report #: [id number] THIS REPORT FOR: cc: FAM - No family physician/PCP FAM - No family physician/PCP Madelyn Zambrano ~ CC: Remington Byrnes MD DATE OF SERVICE: 04/03/2020 CHIEF COMPLAINT: Lumbar radiculopathy and low back pain. HISTORY OF PRESENT ILLNESS: This is a 54-year-old female, who returns to the pain clinic today for her ongoing low back pain issues that do radiate into her bilateral legs. She feels that the occasional hydrocodone taking one tablet a day is beneficial in relieving most of her symptoms. She is reporting a pain score of 3/10 today and characterizes her pain as an aching soreness with numbness at times. She does report that she recently had a trip to [place] and legs were very weak upon arriving and did have some increased pain. 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 She had significant muscle spasms in her lower back, but found that the Flexeril was beneficial, though did make her tired. Today, she would like refills of her medication and denies any opioid constipation or daytime somnolence as a result of her opioid medicines. ALLERGIES: BACTRIM. CURRENT LIST OF MEDICATIONS: Vitamin B12, folic acid, hydrocodone 5/325, Voltaren gel, Alphagan drops, CoQ10, Flexeril, Tylenol Extra Strength, and allergy medicine. PQRS: 1. She has a history of osteoarthritis in her back. Denies rheumatoid arthritis. 2. Height is 4 feet 11 inches, weight is 95, BMI is 19. 3. Vital signs: Blood pressure 112/80, pulse is 84, respirations 14, oxygen sat is 97%. Pain score is 3/10. 4. Fall risk: Denies dizziness, does not need help walking or standing, has not fallen in the last 3 months. 5. The patient is not on any blood thinners or medicine for hypertension. 6. Her opioid therapy is greater than 6 weeks; therefore, an opioid signed contract is on the chart. Risk assessment is low. Functional assessment is 2170. 7. Recreational drug use, she denies. She is not a smoker and occasionally drinks alcohol. [address] [address] PAIN MANAGEMENT CONSULTATION Name: JANET ROBERTS Room #: REG [facility].#: [id number] Admission: 04/03/20 Attend Phys: Madelyn Zambrano Discharge: Date of : 61 Report #: [id number] According to the prescription monitoring system, the patient is filling her medicines appropriately. Her morphine milliequivalent is 5 MME per day since she takes one tablet daily. The prescriptions typically last her 4-5 months. There is a recent drug screen on the chart that was appropriate as well for her opioid medications. PHYSICAL EXAMINATION: GENERAL: This is a well-developed, well-nourished, well-hydrated 54-year-old female who appears her stated age. She has a flat affect, slightly depressive nature in her tone, rating her pain score at 3/10. HEENT: Normocephalic, atraumatic. Extraocular eye muscles are intact. She is wearing a mask today. MUSCULOSKELETAL: Her lower extremity strength is judged to be 5/5 in all major muscle groups with good sensation. She has numbness though in her bilateral legs, tenderness in her lumbosacral region. She has a slightly antalgic gait. ASSESSMENT: 1. Low back pain with spondylitic changes. 2. Lumbar radiculopathy. 3. Management of the high risk medications under terms of written opioid agreement. We reviewed the fact that opiate medications are being used to provide analgesia adequate to support activities of daily living, not attempting to achieve a specific pain score on the 0-10 Visual Analog Scale. The current opiate medications are providing sufficient analgesia to allow the patient to participate in activities of daily living. The patient is not exhibiting any aberrant behavior suggestive of drug diversion. The patient is not having any adverse reactions to medications. The patient is not suffering from daytime somnolence or mental acuity changes. The patient is managing opiate-induced constipation with appropriate oayc-vte-yoiinoo agents and dietary considerations. The patient was counseled on concern for caution with operating a motor vehicle while using opiate medications. A physical exam was performed and the patient's functional status was evaluated. All patients with back pain were advised against the bed rest greater than 4 days and were advised to return to normal activities. Pain score assessment was noted and the treatment plan was reviewed with the patient. All current medications, both prescribed and OTC were reviewed and reconciled on the electronic medical record. Tobacco screening was accomplished and smoking cessation was advised when indicated. BMI was noted and diet/exercise modification was recommended for all patients following outside normal parameters. I reviewed with the patient today their responsibilities to safeguard prescription medications, reviewed their responsibility to utilize medications [address] [address] PAIN MANAGEMENT CONSULTATION Name: JANET ROBERTS Room #: REG [facility] Hutchins#: [id number] Admission: 04/03/20 Attend Phys: Madelyn Zambrano Discharge: Date of : 61 Report #: [id number] only as prescribed by the physician. They are to seek and receive pain medications only from 1 physician group ( [facility]). They are to use 1 pharmacy and keep the clinic informed if they change pharmacies. Their responsibilities include making followup visits in a timely fashion and to avoid abrupt discontinuation of medication usage. Their responsibilities further include bringing their medications (bottles from the pharmacy with residual pills) to the visit for possible confirmation of pill counts and the patient understands it is their responsibility to submit to random drug screens to ensure both that the medications prescribed are present, and that no other controlled substances are present. All prescriptions provided today were generated electronically. PLAN: 1. We discussed treatment options with the patient today. The patient finds her medication beneficial, taking an average of one hydrocodone 5/325 a day. Occasionally, there are days when she does not take any medications. Today, we will have Dr. Remington Byrnes refill her hydrocodone 5/325, #120. 2. We did discuss her Flexeril. She takes this when she does have increased spasms in her lower back, though finds that it does make her sleepy. I encouraged her to try and split the dose if she does have a flare and needs to take it during the day and then take an entire pill at bedtime as needed. The patient verbalizes understanding. 3. The patient will return in 3-4 months as needed for medication refills. I instructed her that she will see Dr. Byrnes at that time and to schedule an appointment in a timely fashion. The patient is seen today in collaboration with Dr. Remington Byrnes. <ELECTRONICALLY SIGNED> By: Madelyn Zambrano 04/04/20 1307 [id number] Madelyn Zambrano /nt
== END ==
LOC: PAIN 07:00
PROVIDERS: ATTEND Clinical Nurse Specialist Adult Health
DX: M54.16 Radiculopathy, lumbar region (principal); F11.20 Opioid dependence, uncomplicated; Z88.8 Allergy status to other drugs, medicaments and biological substances; Z79.899 Other long term (current) drug therapy

== ENCOUNTER → 2020-07-10 | Outpatient (CLI) | payer OTHER ==
[~2020-07-10] VITALS: Ht 149.9 cm; Wt 43.0 kg
[~2020-07-10] MED LIST changes: +TIMOLOL MALEATE5 M2 OPHTHALMIC
[2020-07-10 12:36] VITALS: BP 142/98
--- NOTE | 2020-07-10 12:43 | NUR ---
Pain Clinic Assessment: 1. History of Osteoarthritis: LOW BACK History of Rheumatoid Arthritis: Not Applicable 2. Height: 4 ft. 11 in. 149.9 cm. Weight: 94.8 lb. oz. 43.001 kg. Patient's BMI: 19.1 3. Vital Signs: BP: 142/98 Pulse: 68 Resp: 18 Temp: 02 Sat: 99 ECG Mon: 4. Pain Intensity: 4 5. Fall Risk: Dizziness: N Needs help standing or walking: N Fallen in the last 3 months: N Fall risk comments: 6. Patient on Blood Thinner: None 7. History of Hypertension: N 8. Opioid Therapy greater than 6 weeks: Y Opiate Contract Signed: 05/13/16 9. Risk Assessment Tool Provided: LOW RISK 07/23 10. Functional Assessment Tool: 11. Recreational Drug Use: Never Drug Type: Tobacco Use: Never Smoker Tobacco Type: Amount or Packs/day: How Many Years: Alcohol Use: Yes Frequency: Weekly Quant: 1
--- NOTE | 2020-07-11 14:25 | HPC ---
[facility] [address] [place] [address] PAIN MANAGEMENT CONSULTATION Name: JANET ROBERTS Room #: REG [facility]..#: [id number] Admission: 07/10/20 Attend Phys: Madelyn Zambrano Discharge: Date of : 61 Report #: [id number] THIS REPORT FOR: cc: FAM - No family physician/PCP FAM - No family physician/PCP Madelyn Zambrano ~ DATE OF SERVICE: 07/10/2020 CHIEF COMPLAINT: Lumbar radiculopathy and low back pain. HISTORY OF PRESENT ILLNESS: This is a 54-year-old female, who returns to the pain clinic today for refill of her medications. She reports that she is doing slightly better than our last visit. The patient feels this improvement is due to lack of no longer moving her mother out of her house and strenuous activity that did cause her increased pain from the lifting of boxes. The patient reports her pain is in her low back that does radiate into her legs. It is an achy soreness that is occasional stiff, again rating her pain at 4/10, worse with walking, driving or prolonged sitting. Overall, she believes the medication taking on average of 1 tablet a day as well as exercise such as walking on her treadmill have been very beneficial. She denies any daytime constipation or somnolence issues as a result of her medications. ALLERGIES: BACTRIM. MEDICATIONS: Timolol, hydrocodone 5/325, vitamin D, vitamin B, Voltaren gel, CoQ10, Flexeril p.r.n., allergy medicine and Tylenol Extra Strength. PQRS: 1. She has osteoarthritis in her lower back. Denies any rheumatoid arthritis. 2. Height is 4 feet 11 inches, weight is 94, BMI is 19. 3. Vital signs 142/98, pulse is 68, respirations 18, oxygen sat is 99%. 4. Pain score is 4/10. 5. Denies dizziness, does not need assistance with walking, has not fallen in the last 3 months. 6. The patient is not on any blood thinners or medicine for hypertension. 7. Opioid therapy is greater than 6 weeks; therefore, an opioid signed contract is on the chart. Risk assessment is low. Functional assessment is . 8. Recreational drug use, she denies. She is not a smoker and occasionally drinks alcohol. According to the prescription monitoring system, she filled last in March. The patient utilizes 1 pain pill a day, her morphine mEq at 5. We will collect a random drug screen on this patient today. She has taken her last dose of hydrocodone yesterday evening. PHYSICAL EXAMINATION: [address] [address] PAIN MANAGEMENT CONSULTATION Name: JANET ROBERTS Room #: REG CHAS Hutchins#: [id number] Admission: 07/10/20 Attend Phys: Madelyn Zambrano Discharge: Date of : 61 Report #: [id number] GENERAL: This is alert and orientated 54-year-old female with a very flat affect, who is reporting her pain score today at 4/10. She is a good historian. HEENT: Normocephalic, atraumatic. Extraocular eye muscles are intact. She is wearing a mask. MUSCULOSKELETAL: She has tenderness across her low back, radiates into her legs bilaterally. She moves from sitting to standing position and walks without antalgic features. Tenderness across her low back. Straight leg raising reproduces some pain and discomfort. Lower extremity strength is symmetrical at 5/5. ASSESSMENT: 1. Low back pain with spondylitic changes. 2. Lumbar radiculopathy. 3. Management of high risk medications under terms of written opioid agreement. We reviewed the fact that opiate medications are being used to provide analgesia adequate to support activities of daily living, not attempting to achieve a specific pain score on the 0-10 Visual Analog Scale. The current opiate medications are providing sufficient analgesia to allow the patient to participate in activities of daily living. The patient is not exhibiting any aberrant behavior suggestive of drug diversion. The patient is not having any adverse reactions to medications. The patient is not suffering from daytime somnolence or mental acuity changes. The patient is managing opiate-induced constipation with appropriate rday-zoy-zrzhbek agents and dietary considerations. The patient was counseled on concern for caution with operating a motor vehicle while using opiate medications. PLAN: 1. We discussed treatment options with the patient today. She feels her hydrocodone is beneficial utilizing average of 1 tablet per day. She may take an extra dose if her symptoms increase with increased activity. Overall, she is grateful for the benefit that the medicines do help with pain relief. Scripts will be sent electronically by Dr. Sow who is covering for Dr. Byrnes today of hydrocodone 5/325, #120. This typically lasts an average of 3 months. 2. The patient finds that on more significant pain days, she does utilize Flexeril, taking 1 at bedtime. These days have a tendency to have increased muscle spasms in her lower back, but the Flexeril is very beneficial, though she has significant somnolence with the medication and only takes it at bedtime. 3. The patient will follow up with Dr. Remington Byrnes in 3 months. The patient instructed to call when she has an average of 1 month of medications left. Today, we will collect a random drug screen on this patient and she is seen today in collaboration with Dr. Sy Sow. <ELECTRONICALLY SIGNED> By: Madelyn Zambrano 07/11/20 1425 1421 [id number] Madelyn Zambrano /nt
== END ==
LOC: PAIN 07:03
PROVIDERS: ATTEND Clinical Nurse Specialist Adult Health
DX: M47.26 Other spondylosis with radiculopathy, lumbar region (principal); Z79.891 Long term (current) use of opiate analgesic; Z79.899 Other long term (current) drug therapy